=== PATIENT | female | born 1985 ===

== ENCOUNTER 2018-11-23 18:35 | Emergency (ER) | payer BC ==
--- NOTE | 2018-11-23 19:15 | EDM.PDOC ---
ED HPI GENERAL MEDICAL PROBLEM - General Chief Complaint: ENT Problem Stated Complaint: EAR ACHE Time Seen by Provider: 11/23/18 18:36 Source of Information: Reports: Patient History Limitations: Reports: No Limitations - History of Present Illness INITIAL COMMENTS - FREE TEXT/NARRATIVE: HISTORY AND PHYSICAL: History of present illness: Patient is a 32-year-old female who presents to the ED today with concern of right ear pain 2 days. Patient states she has a history of frequent ear infections and had an infection several months ago on the left ear. Patient states she has been putting ear drops in the right ear without relief of symptoms. Patient denies any other symptoms at this time. Patient denies any change in hearing or hearing loss. Patient denies fever, chills, chest pain, shortness of breath, or cough. Denies headache, neck stiff ness, change in vision, syncope, or near syncope. Denies nausea, vomiting, abdominal pain, diarrhea, constipation, or dysuria. Has not noted any blood in urine or stool. Patient has been eating and drinking appropriately. Review of systems: As per history of present illness and below otherwise all systems reviewed and negative. Past medical history: As per history of present illness and as reviewed below otherwise noncontributory. Surgical history: As per history of present illness and as reviewed below otherwise noncontributory. Social history: See social history for further information Family history: As per history of present illness and as reviewed below otherwise noncontributory. Physical exam: General: Patient is alert, oriented, and in no acute distress. Patient sitting comfortably on exam table. HEENT: Atraumatic, normocephalic, pupils equal and reactive bilaterally, negative for conjunctival pallor or scleral icterus, mucous membranes moist, left TM is normal, right TM is erythematous with a ruptured tympanic membrane, negative bilateral mastoid tenderness, throat clear, neck supple, nontender, trachea midline. No drooling or trismus noted. No meningeal signs. No hot potato voice noted. Lungs: Clear to auscultation, breath sounds equal bilaterally, chest nontender. Heart: S1S2, regular rate and rhythm without overt murmur Abdomen: Soft, nondistended, nontender. Negative for masses or hepatosplenomegaly. Negative for costovertebral tenderness. Pelvis: Stable nontender. Genitourinary: Deferred. Rectal: Deferred. Skin: Intact, warm, dry. No lesions or rashes noted. Extremities: Atraumatic, negative for cords or calf pain. Neurovascular unremarkable. Neuro: Awake, alert, oriented. Cranial nerves II through XII unremarkable. Cerebellum unremarkable. Motor and sensory unremarkable throughout. Exam nonfocal. Notes: Discussed the importance for follow-up with a primary care provider in the ENT specialist. Voices understanding and is agreeable to plan of care. Denies any further questions or concerns at this time. Diagnostics: None Therapeutics: None Prescription: Augmentin, Shelby #10 Impression: Right acute otitis media Ruptured tympanic membrane, right Plan: 1. Take medication as prescribed. Caution with Shelby as this causes drowsiness. Caution outside the home and do not operate equipment or machinery. You can alternate ibuprofen and Tylenol as directed for pain and discomfort. 2. Referral for ENT has been generated for you, follow-up with your nose and throat specialist and primary care provider. 3. Return to the ED as needed and as discussed. Definitive disposition and diagnosis as appropriate pending reevaluation and review of above. Right Ear Pain Score (Numeric/FACES): 8 - Related Data Allergies Allergy/AdvReac Type Severity Reaction Status Date / Time No Known Allergies Allergy Verified 11/23/18 18:49 Home Meds: Home Meds . [No Known Home Meds] 11/23/18 [History] Past Medical History - Past Health History Medical/Surgical History: Denies Medical/Surgical History - Infectious Disease History Infectious Disease History: Reports: None Social & Family History - Family History Family Medical History: Noncontributory - Tobacco Use Smoking Status *Q: Never Smoker - Caffeine Use Caffeine Use: Reports: None - Recreational Drug Use Recreational Drug Use: No ED ROS ENT - Review of Systems Review Of Systems: ROS reveals no pertinent complaints other than HPI. ED EXAM, ENT - Physical Exam Exam: See Below (See dictation) Course - Vital Signs Last Recorded V/S: Last Vital Signs Temp 36.2 C 11/23/18 18:50 Pulse 77 11/23/18 18:50 Resp 15 11/23/18 18:50 BP 108/58 L 11/23/18 18:50 Pulse Ox 98 11/23/18 18:50 Departure - Departure Time of Disposition: 19:15 Disposition: Home, Self-Care 01 Clinical Impression: Acute otitis media Qualifiers: Otitis media type: suppurative Laterality: right Recurrence: recurrent Spontaneous tympanic membrane rupture: with spontaneous rupture Qualified Code(s ): H66.014 - Acute suppurative otitis media with spontaneous rupture of ear drum , recurrent, right ear - Discharge Information Instructions: Eardrum Perforation, [id number] Referrals: PCP,None [Primary Care Provider] - Additional Instructions: The following information is given to patients seen in the emergency department who are being discharged to home. This information is to outline your options for follow-up care. We provide all patients seen in our emergency department with a follow-up referral. The need for follow-up, as well as the timing and circumstances, are variable depending upon the specifics of your emergency department visit. If you don't have a primary care physician on staff, we will provide you with a referral. We always advise you to contact your personal physician following an emergency department visit to inform them of the circumstance of the visit and for follow-up with them and/or the need for any referrals to a consulting specialist. The emergency department will also refer you to a specialist when appropriate. This referral assures that you have the opportunity for follow-up care with a specialist. All of these measure are taken in an effort to provide you with optimal care, which includes your follow-up. Under all circumstances we always encourage you to contact your private physician who remains a resource for coordinating your care. When calling for follow-up care, please make the office aware that this follow-up is from your recent emergency room visit. If for any reason you are refused follow-up, please contact the [facility] Emergency Department at and asked to speak to the emergency department charge nurse. [facility] [address] [place] [address] [id number] [address] [facility] Ears, Nose, and Throat Specialist, Dr. Randy Clark [phone] [id number] 1. Take medication as prescribed. Caution with Shelby as this causes drowsiness. Caution outside the home and do not operate equipment or machinery. You can alternate ibuprofen and Tylenol as directed for pain and discomfort. 2. Referral for ENT has been generated for you, follow-up with your nose and throat specialist and primary care provider. 3. Return to the ED as needed and as discussed.
== END 2018-11-23 19:34 | disposition home or self-care (01) ==
LOC: MW.ED 18:35
DX: H66.014 Acute suppurative otitis media with spontaneous rupture of ear drum, recurrent, right ear (principal); H72.91 Unspecified perforation of tympanic membrane, right ear
CPT/HCPCS: 99282

== ENCOUNTER 2020-09-01 21:41 | Emergency (ER) | payer BC ==
[2020-09-01] MEDS ORDERED: Ketorolac 15 MG/ML SDV IM ONE (22:17)
--- NOTE | 2020-09-01 22:49 | CR ---
Indication: Recent fall with right-sided pain Technique: Three views Comparison: None Findings: Bones: Alignment is normal. No fractures or bone lesions. Joint spaces: Unremarkable. Soft tissues: Unremarkable. Dictated by Owen Ambrocio MD @ Sep 01 2020 10:47PM Signed by Dr. Owen Ambrocio @ Sep 01 2020 10:48PM
--- NOTE | 2020-09-01 22:51 | CR ---
Indication: Fall with right-sided pain Technique: Three views Comparison: None Findings: Bones: Alignment is normal. No fractures or bone lesions. Joint spaces: Unremarkable. Soft tissues: Unremarkable. Dictated by Owen Ambrocio MD @ Sep 01 2020 10:46PM Signed by Dr. Owen Ambrocio @ Sep 01 2020 10:49PM
--- NOTE | 2020-09-01 22:58 | CT ---
INDICATION: Neck pain TECHNIQUE: CT cervical spine without contrast. COMPARISON: None FINDINGS: Vertebrae: Alignment is normal. There are no fractures or suspicious bony lesions. Discs and facet joints: Facet hypertrophy at C2-3, C3-4, C4-5, C5-6, C6-7 and C7-T1 without significant stenosis. Extraspinal findings: Prevertebral soft tissues, visualized airway, and visualized lungs are unremarkable. IMPRESSION: Diffuse mild facet arthropathy cervical spine without evidence of cervical spine fracture or significant stenosis. Please note that all CT scans at this facility use dose modulation, iterative reconstruction, and/or weight-based dosing when appropriate to reduce radiation dose to as low as reasonably achievable. Dictated by Owen Ambrocio MD @ Sep 01 2020 10:47PM Signed by Dr. Owen Ambrocio @ Sep 01 2020 10:57PM
--- NOTE | 2020-09-02 00:52 | EDM.PDOC ---
ED HPI GENERAL MEDICAL PROBLEM - General Chief Complaint: Upper Extremity Injury/Pain Stated Complaint: RIGHT ARM PAIN Time Seen by Provider: 09/01/20 21:49 - History of Present Illness INITIAL COMMENTS - FREE TEXT/NARRATIVE: CHIEF COMPLAINT(S): Right shoulder and arm pain HISTORY OF PRESENT ILLNESS: This is a 34-year-old woman without any significant past medical history who comes to the emergency department with a chief co mplaint of right shoulder and arm pain. The patient states that she went to [facility] in [place] after she had a fall approximately 3 days ago. She states that they did x-rays and told her that everything looked okay. She states that she was discharged with muscle relaxer and diclofenac. She states that she slipped on the ice and fell onto her right side and head. She denies any loss of consciousness. She states that she has been experiencing right arm pain and right anterior chest wall pain and right lateral neck pain. She describes the pain as a achy sharp pain. She denies any numbness, tingling, or weakness. She states that the pain was so bad at work that she felt like she was going to pass out. She states that the muscle relaxer and diclofenac are not helping. She has been trying Biofreeze to the area which also has not been helping. She denies any injury other than this. She states that they did not get a CT of her neck. The pain is exacerbated by movement. REVIEW OF SYSTEMS: Constitutional: Denies fever, chills. Eyes: Denies eye pain Ears, Nose, Mouth, & Throat: Denies earache Cardiovascular: Denies chest pain Respiratory: Denies shortness of breath Gastrointestinal: Denies Nausea, vomiting, diarrhea, hematochezia. Genitourinary: Denies hematuria Skin:Denies a rash MSK: Positive for right shoulder and anterior chest wall pain and right lateral neck pain Neurological: Denies blurred vision, numbness, tingling, weakness Psychiatric: Denies depression PAST MEDICAL HISTORY: As per history of present illness and as reviewed below otherwise noncontributory. SURGICAL HISTORY: As per history of present illness and as reviewed below otherwise noncontributory. SOCIAL HISTORY: As per history of present illness and as reviewed below otherwise noncontributory. FAMILY HISTORY: As per history of present illness and as reviewed below otherwise noncontributory. EXAMINATION OF ORGAN SYSTEMS/BODY AREAS: Constitutional: Blood pressure is 111/71, heart rate 84, respiratory rate 18 with an oxygen saturation 95% on room air. Temperature 36.5 General: Overall well-appearing woman who is in no acute distress. Psychiatric: Appropriate mood and affect. Eyes: No scleral icterus or conjunctival erythema ENMT: Moist mucous membranes. No pharyngeal erythema neck is supple. No swelling. No drooling. No stridor. Cardiovascular: Regular, rate, and rhythm. No gallops, murmurs, or rubs. Bilateral upper extremity pulses symmetric and intact. No peripheral edema. No JVD. There is tenderness to palpation just inferior to the right clavicle without any deformity. Respiratory: Lungs clear to auscultation bilaterally. No wheezes, rales, or rhonchi. Gastrointestinal: Soft, non-tender, non-distended. Normoactive bowel sounds Genitourinary: No suprapubic tenderness Musculoskeletal: The patient has full range of motion at the right shoulder, right elbow, right wrist and hand. The patient has medial elbow tenderness and anterior shoulder tenderness. Negative empty can test. There is no obvious deformity or swelling. The patient does have some mild midline cervical tenderness. There is more severe right paracervical tenderness with muscle tightness. Skin: No lesions or abrasions. Neurological: Alert, GCS 15 strength and sensation grossly intact in upper and lower extremities bilaterally MEDICAL DECISION MAKING AND COURSE IN THE ED WITH INTERPRETATION/REVIEW OF DIAGNOSTIC STUDIES: This is a 34-year-old woman with a recent accidental fall who comes to the emergency department with what appears to be acute musculoskeletal pain however given the continued pain we will obtain imaging including a right elbow x-ray, right shoulder x-ray and a CT cervical spine. We will provide the patient with Toradol for pain relief. The radiological images were viewed by myself along with reading the report from the radiologist. Right elbow x-ray does not reveal any fracture dislocation. Right shoulder x-ray does not reveal any fracture or dislocation. CT cervical spine does not reveal any fracture or subluxation. After imaging I did discuss the results with the patient. I discussed with her at this time that there was no bony abnormality. I did discuss with her that I would like her to use Tylenol and Motrin for pain relief. I also discussed the use of [id number] Voltaren and lidocaine cream. I discussed with her that she did ice the areas 20 minutes 4 times a day. I discussed if she had continued pain she should follow-up with orthopedic clinic. She was amenable to discharge at this time and had no further questions. DISPOSITION: The patient was discharged home in stable condition. The patient will follow up with orthopedics within 1 CONDITION: Fair PROCEDURES: None FINAL IMPRESSION(S)/DIAGNOSES: 1. Acute right paracervical neck strain 2. Acute right shoulder pain likely musculoskeletal 3. Acute right elbow pain likely contusion from the fall 4. Acute right anterior chest wall musculoskeletal pain Atilio Balderas M.D. right arm/shoulder Pain Score (Numeric/FACES): 8 - Related Data Allergies Allergy/AdvReac Type Severity Reaction Status Date / Time No Known Allergies Allergy Verified 09/01/20 21:52 Home Meds: Home Meds . [No Known Home Meds] 11/23/18 [History] Past Medical History - Past Health History Medical/Surgical History: Denies Medical/Surgical History HEENT History: Reports: None Cardiovascular History: Reports: None Respiratory History: Reports: None Gastrointestinal History: Reports: None Genitourinary History: Reports: None PITCH GATHERER History: Reports: None Musculoskeletal History: Reports: None Neurological History: Reports: None Psychiatric History: Reports: None Endocrine/Metabolic History: Reports: None Insulin Pump Model and Land Economist: None Hematologic History: Reports: None Immunologic History: Reports: None Oncologic (Cancer) History: Reports: None Dermatologic History: Reports: None - Infectious Disease History Infectious Disease History: Reports: None Social & Family History - Family History Family Medical History: No Pertinent Family History - Caffeine Use Caffeine Use: Reports: None - Recreational Drug Use Recreational Drug Use: No Review of Systems - Review of Systems Review Of Systems: See Below ED EXAM, GENERAL - Physical Exam Exam: See Below Course - Vital Signs Last Recorded V/S: Last Vital Signs Temp 36.2 C 09/02/20 00:58 Pulse 78 09/02/20 00:58 Resp 18 09/02/20 00:58 BP 107/65 09/02/20 00:58 Pulse Ox 98 09/02/20 00:58 - Orders/Labs/Meds Meds: Medications Discontinued Medications Generic Name Dose Route Start Last Admin Trade Name Freq PRN Reason Stop Dose Admin Ketorolac Tromethamine 15 mg 09/01/20 22:17 09/01/20 22:51 Toradol IM 09/01/20 22:18 15 mg ONETIME ONE Administration Departure - Departure Time of Disposition: 00:52 Disposition: Home, Self-Care 01 Condition: Fair Clinical Impression: Musculoskeletal arm pain Qualifiers: Laterality: right Qualified Code(s): M79.601 - Pain in right arm - Discharge Information *PRESCRIPTION DRUG MONITORING PROGRAM REVIEWED*: No *COPY OF PRESCRIPTION DRUG MONITORING REPORT IN PATIENT PETE: No Instructions: Shoulder Pain, [id number], Pain Medicine Instructions, [id number] Referrals: PCP,None [Primary Care Provider] - Forms: ED Department Discharge Additional Instructions: Your evaluated today on an emergent basis. At this time your imaging was negative. I do recommend the use of Tylenol and Motrin and ice 20 minutes 4 times a day. Please follow-up with orthopedics within 3 to 5 days. Please use: Tylenol 500-1000mg every 6 hours (DO NOT TAKE MORE THAN 4000mg in 1 day) Ibuprofen 400mg every 6 hours (Take with food as it can cause ulcers, GI upset) Example schedule: 8:00 AM (Tylenol 500-1000mg) 11:00 AM (Ibuprofen 400mg) 2:00 PM (Tylenol 500-1000mg) 5:00 PM (Ibuprofen 400mg) In addition to Tylenol and Motrin you may use over the counter creams such as Voltaren Cream or Lidocaine Cream (Lidoderm) as needed 4 times a day for symptomatic relief. Ice the area 20 minutes 4 times per day [facility] [address], [address] [place] [address] The patient is informed of any results of their evaluation and diagnostic workup and all questions are answered. They are given discharge instructions and return precautions. The patient is stable for discharge. The patient states they understand and agree with the plan and that they will return if their symptoms get worse or if they have any new concerns. The following information is given to patients seen in the emergency department who are being discharged to home. This information is to outline your options for follow-up care. We provide all patients seen in our emergency department with a follow-up referral. The need for follow-up, as well as the timing and circumstances, are variable depending upon the specifics of your emergency department visit. If you don't have a primary care physician on staff, we will provide you with a referral. We always advise you to contact your personal physician following an emergency department visit to inform them of the circumstance of the visit and for follow-up with them and/or the need for any referrals to a consulting specialist. The emergency department will also refer you to a specialist when appropriate. This referral assures that you have the opportunity for follow-up care with a specialist. All of these measure are taken in an effort to provide you with optimal care, which includes your follow-up. Under all circumstances we always encourage you to contact your private physician who remains a resource for coordinating your care. When calling for follow-up care, please make the office aware that this follow-up is from your r ecent emergency room visit. If for any reason you are refused follow-up, please contact the [facility] Emergency Department at and asked to speak to the emergency department charge nurse. Sepsis Event Note (ED) - Evaluation Sepsis Screening Result: No Definite Risk
== END 2020-09-02 00:59 | disposition home or self-care (01) ==
LOC: MW.ED 21:41
DX: S16.1XXA Strain of muscle, fascia and tendon at neck level, initial encounter (principal); M25.511 Pain in right shoulder; M25.521 Pain in right elbow; R07.89 Other chest pain; W19.XXXA Unspecified fall, initial encounter
CPT/HCPCS: 72125; 73030; 73080; 96372; 99284; J1885

== ENCOUNTER 2021-06-23 21:27 | Emergency (ER) | payer BC ==
[2021-06-23] MEDS ORDERED: Ketorolac 30 MG/ML SDV IM STA (21:56)
[2021-06-23 22:17] LABS: CORONAVIRUS COVID-19 NAA POSITIVE (NEGATIVE); INFLUENZA A NAA NEGATIVE (NEGATIVE); INFLUENZA B NAA NEGATIVE (NEGATIVE)
--- NOTE | 2021-06-23 22:48 | CR ---
INDICATION: Cough TECHNIQUE: Portable upright AP view of the chest COMPARISON: None FINDINGS: The lungs are clear. Small nodular opacity projecting over the left lung base is favored to represent a nipple shadow. There is no appreciable pleural effusion or pneumothorax. The cardiomediastinal silhouette is normal. The visualized osseous structures are unremarkable. IMPRESSION: No acute intrathoracic process. Dictated by Alonzo Sahu MD @ 06/23/2021 10:47:22 PM (Electronically Signed)
--- NOTE | 2021-06-23 23:16 | EDM.PDOC ---
ED HPI GENERAL MEDICAL PROBLEM - General Chief Complaint: Fever Stated Complaint: FEVER, BODY ACHES Time Seen by Provider: 06/23/21 21:32 - History of Present Illness INITIAL COMMENTS - FREE TEXT/NARRATIVE: CHIEF COMPLAINT(S): "I do not feel good." HISTORY OF PRESENT ILLNESS: This is a 35-year-old woman without any significant past medical history who comes to the emergency department with a chief complaint of "I do not feel good." Patient states that for the last 3 days she has not been feeling very good. She states that she is experiencing 4-5 out of 10 body aches which she describes as achy and sharp. She states that there is no radiation of this pain as it is all over her body. There are no aggravating or relieving factors. She states in addition to this she feels weak, has a fever, a stuffy nose and a sore throat. She denies any drooling or trismus. She denies any trouble swallowing. She states that she tried naproxen but this does seem to help but then it immediately returns back. In addition to all this she has a nonproductive cough however her cough is gone so bad that she feels like she is going to throw up. She has not yet had any vomiting. She has not yet received the vaccine for COVID-19. REVIEW OF SYSTEMS: Constitutional: Positive for fever and chills Eyes: Denies eye pain Ears, Nose, Mouth, & Throat: Positive for runny nose and sore throat Cardiovascular: Denies chest pain Respiratory: Positive for nonproductive cough denies shortness of breath Gastrointestinal: Denies Nausea, vomiting, diarrhea, hematochezia. Genitourinary: Denies hematuria Skin:Denies a rash MSK: Positive for body aches denies joint pain Neurological: Denies blurred vision, numbness, tingling, weakness Psychiatric: Denies depression PAST MEDICAL HISTORY: As per history of present illness and as reviewed below otherwise noncontributory. SURGICAL HISTORY: As per history of present illness and as reviewed below otherwise noncontributory. SOCIAL HISTORY: As per history of present illness and as reviewed below otherwise noncontributory. FAMILY HISTORY: As per history of present illness and as reviewed below otherwise noncontributory. EXAMINATION OF ORGAN SYSTEMS/BODY AREAS: Constitutional: Blood pressure was 114/58, heart rate 104, respiratory rate 18 with an oxygen saturation 96% on room air. Temperature 38.1 General: Young woman who does not appear to be in acute distress Psychiatric: Appropriate mood and affect. Eyes: No scleral icterus or conjunctival erythema ENMT: Moist mucous membranes. No pharyngeal erythema no tonsillar exudates or swelling. Bilateral nasal turbinates with clear nasal drainage. Bilateral tympanic membranes without any bulging or erythema. Cardiovascular: Tachycardic and regular no gallops, murmurs, or rubs. Bilateral upper extremity pulses symmetric and intact. No peripheral edema. No JVD. Respiratory: Lungs clear to auscultation bilaterally. No wheezes, rales, or rhonchi. Gastrointestinal: Soft, non-tender, non-distended. Normoactive bowel sounds Genitourinary: No suprapubic tenderness Musculoskeletal: Normal range of motion. Skin: No lesions or abrasions. Neurological: Alert, GCS 15 MEDICAL DECISION MAKING AND COURSE IN THE ED WITH INTERPRETATION/REVIEW OF DIAGNOSTIC STUDIES: This is a 35-year-old woman without any significant past medical history who comes to the emergency department with viral symptoms who is mildly tachycardic and febrile but overall appears well. At this time given her constitution of symptoms I do believe this is a viral etiology. Will obtain a Covid, influenza swab. We will also obtain a chest x-ray. For the body aches and fever we will provide the patient with Toradol and we will reevaluate. I do not believe any further imaging or labs are indicated. The patient was amenable to this plan. DDx: Pneumonia, COVID-19, influenza Laboratory: Covid is positive. Influenza is negative. The radiological images were viewed by myself along with reading the report from the radiologist. Chest x-ray does not reveal any acute cardiopulmonary process. After labs and imaging I did discuss the results with the patient. At this time I did discuss that she is within the monoclonal antibody window. She was amenable to this so we did fax her information over. She was given strict return precautions. The patient was amenable to discharge and had no further questions DISPOSITION: The patient was discharged home in stable condition. The patient will follow up with primary care physician after isolation CONDITION: Fair PROCEDURES: None FINAL IMPRESSION(S)/DIAGNOSES: 1. Acute COVID-19 infection Atilio Balderas M.D. generalized Pain Score (Numeric/FACES): 8 - Related Data Allergies Allergy/AdvReac Type Severity Reaction Status Date / Time No Known Allergies Allergy Verified 06/23/21 21:36 Home Meds: Home Meds . [No Known Home Meds] 11/23/18 [History] Past Medical History - Past Health History Medical/Surgical History: Denies Medical/Surgical History HEENT History: Reports: None Cardiovascular History: Reports: None Respiratory History: Reports: None Gastrointestinal History: Reports: None Genitourinary History: Reports: None MACHINE INKER History: Reports: None Musculoskeletal History: Reports: None Neurological History: Reports: None Psychiatric History: Reports: None Endocrine/Metabolic History: Reports: None Insulin Pump Model and Accounting Representative: None Hematologic History: Reports: None Immunologic History: Reports: None Oncologic (Cancer) History: Reports: None Dermatologic History: Reports: None - Infectious Disease History Infectious Disease History: Reports: None Social & Family History - Family History Family Medical History: No Pertinent Family History - Tobacco Use Tobacco Use Status *Q: Never Tobacco User - Caffeine Use Caffeine Use: Reports: None - Recreational Drug Use Recreational Drug Use: No ED ROS GENERAL - Review of Systems Review Of Systems: See Below ED EXAM, GENERAL - Physical Exam Exam: See Below Course - Vital Signs Last Recorded V/S: Last Vital Signs Temp 38.1 C 06/23/21 21:35 Pulse 101 H 06/23/21 23:40 Resp 16 06/23/21 23:40 BP 114/58 L 06/23/21 23:40 Pulse Ox 95 06/23/21 23:40 - Orders/Labs/Meds Labs: Laboratory Tests 06/23/21 Range/Units 21:30 Influenza Type A RNA NEGATIVE (NEGATIVE) Influenza Type B RNA NEGATIVE (NEGATIVE) SARS-CoV-2 RNA (JOSE D) POSITIVE H (NEGATIVE) Meds: Medications Discontinued Medications Generic Name Dose Route Start Last Admin Trade Name Freq PRN Reason Stop Dose Admin Ketorolac Tromethamine 30 mg 06/23/21 21:56 06/23/21 22:00 Ketorolac 30 Mg/Ml Sdv IM 06/23/21 21:57 30 mg ONETIME STA Administration Departure - Departure Time of Disposition: 23:15 Disposition: Home, Self-Care 01 Condition: Fair Clinical Impression: COVID-19 - Discharge Information *PRESCRIPTION DRUG MONITORING PROGRAM REVIEWED*: No *COPY OF PRESCRIPTION DRUG MONITORING REPORT IN PATIENT PETE: No Instructions: What You Should Know About COVID-19 to Protect Yourself and Others - CDC, 10 Things You Can Do to Manage Your COVID-19 Symptoms at Home - CDC (01/16/2021), COVID-19: [facility]arantine vs. Isolation - [facility] (06/19/2020) Referrals: PCP,None [Primary Care Provider] - Forms: ED Department Discharge Additional Instructions: You should take acetaminophen 500-1000 mg every 6 hours as needed for fever and muscle aches. Please drink plenty of fluids and get plenty of rest over the next several days. We would recommend that you get a pulse oximeter from the pharmacy to keep an eye on your oxygen level. If your oxygen level drops below 91%, you should return to the ED for evaluation. You should return to the ER sooner if you start having any symptoms of shortness of breath or any other new or concerning symptoms. 1. Your COVID-19 screening is positive. That means you do have the coronavirus and you are considered contagious. Your vital signs and oxygen saturation are well enough that you were able to monitor your symptoms at home. Continue to monitor for trouble breathing, new confusion or inability to arouse, bluish lips or face or any of the other symptoms we discussed -if this occurs please return to the emergency room. 2. Please self quarantine over the next 10 days. Inform any persons that you have been in contact with since you started becoming symptomatic that you have tested positive; they should be made aware and take the appropriate steps as needed. 3. May alternate Tylenol and ibuprofen as needed for pain and fever management. 4. The [facility] department will be calling you and following up with you. The [place] COVID 19 Hotline phone number , They are open Tuesday - Tuesday 7am - 7pm. Follow up with your primary care provider for re-evaluation and re-testing after the 10 day quarantine and discuss when you should be seen. [facility] [address] [place] [address] [id number] [address] [id number] The patient is informed of any results of their evaluation and diagnostic workup and all questions are answered. They are given discharge instructions and return precautions. The patient is stable for discharge. The patient states they understand and agree with the plan and that they will return if their symptoms get worse or if they have any new concerns. The following information is given to patients seen in the emergency department who are being discharged to home. This information is to outline your options for follow-up care. We provide all patients seen in our emergency department with a follow-up referral. The need for follow-up, as well as the timing and circumstances, are variable depending upon the specifics of your emergency department visit. If you don't have a primary care physician on staff, we will provide you with a referral. We always advise you to contact your personal physician following an emergency department visit to inform them of the circumstance of the visit and for follow-up with them and/or the need for any referrals to a consulting specialist. The emergency department will also refer you to a specialist when appropriate. This referral assures that you have the opportunity for follow-up care with a specialist. All of these measure are taken in an effort to provide you with optimal care, which includes your follow-up. Under all circumstances we always encourage you to contact your private physician who remains a resource for coordinating your care. When calling for follow-up care, please make the office aware that this follow-up is from your recent emergency room visit. If for any reason you are refused follow-up, please contact the [facility] Emergency Department at and asked to speak to the emergency department charge nurse. Sepsis Event Note (ED) - Evaluation Sepsis Screening Result: No Definite Risk - Focused Exam Vital Signs: Vital Signs Temp Pulse Resp BP Pulse Ox 06/23/21 23:40 101 H 16 114/58 L 95 06/23/21 21:35 38.1 C 104 H 18 114/58 L 96
== END 2021-06-23 23:47 | disposition home or self-care (01) ==
LOC: MW.ED 21:27
DX: U07.1 COVID-19 (principal)
CPT/HCPCS: 0240U; 71045; 96372; 99283; J1885

== ENCOUNTER 2022-06-20 21:58 | Emergency (ER) | payer OTHER ==
[2022-06-20] MEDS ORDERED: Acetaminophen 500 MG Tab PO ONE (22:41)
[2022-06-20 23:16] LABS: CORONAVIRUS COVID-19 NAA NEGATIVE (NEGATIVE); INFLUENZA A NAA POSITIVE (NEGATIVE); INFLUENZA B NAA NEGATIVE (NEGATIVE); RESPIRATORY SYNCYTIAL VIR NAA NEGATIVE (NEGATIVE)
== END 2022-06-20 23:30 | disposition home or self-care (01) ==
LOC: MW.ED 21:58
DX: J11.1 Influenza due to unidentified influenza virus with other respiratory manifestations (principal); Z20.822 Contact with and (suspected) exposure to COVID-19
CPT/HCPCS: 0241U; 99283; A9270

== ENCOUNTER 2022-10-25 22:27 | Emergency (ER) | payer OTHER ==
[2022-10-26] MEDS ORDERED: Sodium Chloride 0.9% 10 ML Syringe FLUSH PRN (01:05)
[2022-10-26] MEDS ORDERED: Sodium Chloride 0.9% 2.5 ML Syringe FLUSH PRN (01:05)
[2022-10-26] MEDS ORDERED: Ampicillin/Sulbactam Na 3 GM in Sodium Chloride 0.9% 50 ML IV ONE (01:06)
[2022-10-26] MEDS ORDERED: Ketorolac 30 MG/ML SDV IVPUSH ONE (01:41)
[2022-10-26 02:07] LABS: CARBON DIOXIDE,CO2 21.9 mmol/L (21.0-32.0); POTASSIUM,K 3.4 mmol/L (3.5-5.1)
== END 2022-10-26 02:28 | disposition home or self-care (01) ==
LOC: MW.ED 22:27
DX: L03.113 Cellulitis of right upper limb (principal); S61.431A Puncture wound without foreign body of right hand, initial encounter; W55.01XA Bitten by cat, initial encounter
CPT/HCPCS: 36415; 73130; 80053; 85025; 96365; 96375; 99283; J0295; J1885; J3490; 99284